=== PATIENT | male | born 1985 | race Caucasian/White ===

== ENCOUNTER 2019-07-11 07:57 | Emergency (ER) | payer MEDICAID ==
[2019-07-11 08:17] VITALS: BP 136/80
[2019-07-11] MEDS: PROPARACAINE 0.5% OPHTH DROPS 15 ML RIGHTEYE STA (08:30)
--- NOTE | 2019-07-11 08:58 | ED Physician Documentation ---
PD HPI OPHTHO - Stated complaint Stated Complaint: RT EYE PX - Chief complaint Chief Complaint: Heent - History obtained from History obtained from: Patient - History of Present Illness Timing - onset: Today Timing - duration: Minutes Timing - details: Abrupt onset Location: Right Quality / character: Sharp Associated symptoms: Tearing, FB sensation. No: Decreased vision Contributing factors: Blunt trauma Similar symptoms before: Has not had sx before Recently seen: Not recently seen - Additional information Additional information: 33-year-old male was scratching his right eyebrow and his finger slipped and he scratched his cornea. He has marked pain and difficulty opening his eyes. He does not have any change in his visual acuity associated with this and he did not have excessive trauma. He states the pain is severe sudden and it feels like there is something in his eye. Review of Systems Constitutional: denies: Fever Eyes: reports: Irritation. denies: Loss of vision, Decreased vision, Photophobia, Discharge Ears: denies: Ear pain Nose: denies: Congestion Throat: denies: Sore throat Respiratory: denies: Dyspnea, Cough GI: denies: Vomiting PD PAST MEDICAL HISTORY - Present Medications Home Medications: Ambulatory Orders Medication Instructions Recorded Confirmed Neomycin/Poly/Dex Ophth Drops 2 drops RIGHTEYE QID #1 bottle 07/11/19 [Maxitrol Ophth Drops] - Allergies Allergies/Adverse Reactions: Allergies Allergy/AdvReac Type Severity Reaction Status Date / Time cephalexin Allergy Hives Verified 07/11/19 08:24 - Social History Does the pt smoke?: No Smoking Status: Never smoker PD ED PE NORMAL - Vitals Vital signs reviewed: Yes (Hypertensive) - General General: Alert and oriented X 3, Well developed/nourished, Other (33-year-old male in a darkened room with his eyes closed tightly is cooperative but does not want to open his eyes.) - HEENT HEENT: Atraumatic, PERRL, EOMI, Other (With use of proparacaine the patient is able to open his eyes there is obvious injury to the cornea where there is dense fluorescein uptake along the inferior medial margin of the cornea. This involves approximately one third of the medial lower aspect of the cornea. 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 He has retained his visual acuity and he has no evidence of injury to the globe itself. We will place him on some Maxitrol ophthalmic ointment and if he needs follow-up we will have him follow-up with Dr. Lau. Departure - Departure Disposition: 01 Home, Self Care Clinical Impression: Corneal abrasion Qualifiers: Encounter type: initial encounter Laterality: right Qualified Code(s): S05.01XA - Injury of conjunctiva and corneal abrasion without foreign body, right eye, initial encounter Condition: Stable Instructions: ED Eye Injury Corneal Abrasion Follow-Up: Tad Lau MD [Provider Admit Priv/Credential] - Prescriptions: Neomycin/Poly/Dex Ophth Drops [Maxitrol Ophth Drops] 2 drops RIGHTEYE QID #1 bottle
== END 2019-07-11 09:14 | disposition home or self-care (01) ==
LOC: ED 07:57
DX: S05.01XA Injury of conjunctiva and corneal abrasion without foreign body, right eye, initial encounter (principal); X58.XXXA Exposure to other specified factors, initial encounter; Y93.89 Activity, other specified
CPT/HCPCS: 99282; 99284